=== PATIENT | male | born 1950 | race Caucasian/White ===

== ENCOUNTER → 2017-06-29 | Outpatient (CLI) | payer MEDICARE, BC ==
[~2017-06-29] MED LIST: ATOR10TA PO; CHOL10003 PO; CYCL5TAB PO; DUTA1CPM PO; FLUT10SP NS; FLUT16SP2 NS; OLME5TAB4 PO
--- NOTE | 2017-06-29 10:35 | RAD ---
Right ankle radiographs History: Right ankle pain and swelling since falling down stairs June 05, 2017. Comparison: None. Findings: AP and lateral views of the right ankle. Evaluation for acute traumatic injury is limited by lack of third view. No acute fracture or dislocation is identified. Mild lateral ankle soft tissue swelling is seen. Impression: 1. No definite acute osseous traumatic injury identified. 2. Mild lateral ankle soft tissue swelling.
== END | disposition home or self-care (01) ==
LOC: DXRAD 09:09
PROVIDERS: ATTEND Physician Assistant Medical
DX: M25.571 Pain in right ankle and joints of right foot (principal); M25.471 Effusion, right ankle; Z91.81 History of falling
CPT/HCPCS: 73600

== ENCOUNTER → 2019-04-04 | Outpatient (CLI) | payer MEDICARE, BC ==
[~2019-04-04] MED LIST changes: +IOHEXOL 240 MG/ML 50ML VIAL. ONE; +IOHEXOL 300 MG/ML 75 ML VIAL. IV ONE
[2019-04-04 08:41] LABS: BASO % 1 % (0-3); EOS # 0.3 x10^3/uL (0.0-0.7); EOS % 5 % (0-3); HEMATOCRIT 49.5 % (39.0-53.0); HEMOGLOBIN 16.3 g/dL (13.0-17.5); LYMPH % 18 % (24-48); MEAN CORPUSCULAR HEMOGLOBIN 29 pg (25-35); MEAN CORPUSCULAR HGB CONC 33 g/dL (31-37); MEAN CORPUSCULAR VOLUME 88 fL (79-100); MONO # 0.8 x10^3/uL (0.0-1.1); MONO % 13 % (0-9); NEUT # 3.7 x10^3uL (1.8-7.7); NEUT % 64 % (31-73); PLATELET COUNT 192 x10^3/uL (140-400); RED BLOOD COUNT 5.63 x10^6/uL (4.30-5.70); RED CELL DISTRIBUTION WIDTH 14.3 % (11.5-14.5); WHITE BLOOD COUNT 5.8 x10^3/uL (4.0-11.0)
[2019-04-04 08:51] LABS: ALBUMIN 3.8 g/dL (3.4-5.0); ALBUMIN/GLOBULIN RATIO 1.2 (1.0-1.7); CALCIUM 8.7 mg/dL (8.5-10.1); CREATININE 0.9 mg/dL (0.7-1.3); GFR 83.9; POTASSIUM 4.1 mmol/L (3.5-5.1); TOTAL BILIRUBIN 0.6 mg/dL (0.2-1.0); TOTAL PROTEIN 6.9 g/dL (6.4-8.2)
[2019-04-04 14:25] LABS: THYROID STIM HORMONE (TSH) 1.082 uIU/mL (0.358-3.740)
--- NOTE | 2019-04-04 15:47 | RAD ---
EXAM: CT ABDOMEN/PELVIS WITH CONTRAST. HISTORY: Left lower quadrant pain. TECHNIQUE: Computed tomography of the abdomen and pelvis was performed after the intravenous administration of iodinated contrast. COMPARISON: 07/01/2016. FINDINGS: Lung windows through the visualized portions of the bases reveal mild atelectasis. There is a calcified granuloma in the lingula. There is a small hiatal hernia. Bone windows reveal no suspicious lesions. Small right renal cysts measure up to 10 mm. There is no hydronephrosis. The liver, gallbladder, pancreas, adrenal glands and spleen are unremarkable. There are no pathologically enlarged lymph nodes. There is a fluid collection to the left of midline in the prostate measuring 1.8 cm. There is impression on the bladder base. There is mild perivesical stranding. Sigmoid diverticulosis is moderate to severe. There is mild stranding adjacent to the distal descending colon which may reflect scarring from prior inflammation. There is no evidence of appendicitis. There is no small bowel obstruction. A small umbilical hernia contains only fat. IMPRESSION: 1. An 18 mm fluid collection within the left aspect of the prostate may be a variant utricle cyst or abscess. Correlate with symptoms to exclude prostatitis. 2. Mild perivesical edema. Correlate for cystitis. 3. Moderate to severe sigmoid diverticulosis. No clear superimposed acute inflammation. Correlate for evidence of infection to further exclude mild diverticulitis 4. Small hiatal hernia. *One or more of the following individualized dose reduction techniques were utilized for this examination: 1. Automated exposure control. 2. Adjustment of the mA and/or kV according to patient size. 3. Use of iterative reconstruction technique. Electronically signed by: Héctor Sliva MD (04/04/2019 3:44 PM) [facility]
== END | disposition home or self-care (01) ==
LOC: CT 08:10
PROVIDERS: ATTEND Physician Assistant Medical
DX: Z12.5 Encounter for screening for malignant neoplasm of prostate (principal); K57.30 Diverticulosis of large intestine without perforation or abscess without bleeding; K44.9 Diaphragmatic hernia without obstruction or gangrene; N28.1 Cyst of kidney, acquired; K42.9 Umbilical hernia without obstruction or gangrene; E55.9 Vitamin D deficiency, unspecified; E78.5 Hyperlipidemia, unspecified; J98.11 Atelectasis; J84.10 Pulmonary fibrosis, unspecified
CPT/HCPCS: 36415; 74177; 80053; 80061; 82306; 84439; 84443; 85025; G0103; Q9967

== ENCOUNTER → 2020-01-03 | Outpatient (CLI) | payer MEDICARE, BC ==
[~2020-01-03] MED LIST changes: -IOHEXOL 240 MG/ML 50ML VIAL. ONE; -IOHEXOL 300 MG/ML 75 ML VIAL. IV ONE
--- NOTE | 2020-01-03 13:44 | RAD ---
KNEE RIGHT 2V DATE: 01/03/2020 12:00 AM INDICATION: RIGHT KNEE PAIN COMPARISON: None. FINDINGS: Bones: There is no evidence of acute fracture or dislocation. Joints: Mild medial compartment joint space narrowing. There is no joint effusion. Miscellaneous: None. IMPRESSION: No acute osseous abnormality. Mild medial compartment joint space narrowing. Electronically signed by: Rico Moore MD (01/03/2020 1:41 PM) [id number]
== END | disposition home or self-care (01) ==
LOC: PMG 10:20
PROVIDERS: ATTEND Family Medicine
DX: M17.11 Unilateral primary osteoarthritis, right knee (principal); M25.861 Other specified joint disorders, right knee
CPT/HCPCS: 73560

== ENCOUNTER → 2020-05-08 | Outpatient (CLI) | payer MEDICARE, BC ==
--- NOTE | 2020-05-08 16:08 | RAD ---
Indications: Right knee pain. TWO-VIEW STUDY OF THE RIGHT KNEE AND AP STANDING VIEW OF BOTH KNEES COMPARISON: January 03, 2020. FINDINGS: Right knee: The patella is normally aligned. There is mild degenerative spurring of the pat ellofemoral joint compartment. There is minimal degenerative spurring of the lateral tibiofemoral brendon nt compartment without significant joint space narrowing. There is mild joint space narrowing without spurring of the medial tibiofemoral joint compartment of the right knee. These findings are unchange d. No acute fracture or dislocation or lytic process is seen. No significant swelling of the suprapat alla bursa is seen to indicate a joint effusion radiographically. AP standing view of the left knee demonstrates moderate joint space narrowing of the medial tibial fe moral joint compartment without spurring. There is minimal spurring of the lateral tibial plateau wit hout significant joint space narrowing of the lateral tibiofemoral joint compartment left knee. IMPRESSION: Mild primary degenerative osteoarthritis of the right knee. No significant change from pr evious study. Electronically signed by: Piyush Javier MD (05/08/2020 4:06 PM) [id number]
== END ==
LOC: DXRAD 13:29
PROVIDERS: ATTEND Orthopaedic Surgery
DX: M17.11 Unilateral primary osteoarthritis, right knee (principal); M25.561 Pain in right knee
CPT/HCPCS: 73560; 73565